=== PATIENT | male | born 1980 | race African-American/Black ===

== ENCOUNTER 2017-07-19 17:22 | Emergency (ER) | payer SELFPAY ==
[2017-07-19] MEDS ORDERED: KETOROLAC 60 MG/2 ML VIAL IM STA (17:45)
--- NOTE | 2017-07-19 17:49 | Emergency Department Record ---
History of Present Illness - General Chief Complaint: Back Pain/Injury Stated Complaint: BACK PAIN Time Seen by Provider: 07/19/17 17:24 Source: Patient Mode of Arrival: Ambulatory Limitations: No limitations - History of Present Illness Initial Comments: 36 yo male presents to ED for evaluation of lower back pain symptoms to the right lower lumbar region. Patient denies specific injury, but does reports that he awoke with symptoms this morning. Patient denies fevers, chills, urinary retention symptoms, or numbness/weakness to the lower extremities. Patient denies history of IVDA. Patient denies health problems at his baseline. MD Complaint: Back pain Onset/Timin -: Hour(s) Similar Symptoms Previously: Yes Radiation: Other Severity scale (1-10): 8 Consistency: Constant Improves With: None Worsens With: None Context: Unknown Associated Symptoms: Difficulty urinating, Difficulty walking, Headaches, Nausea /vomiting Treatments Prior to Arrival: Acetaminophen - Related Data Previous Rx's Medication Instructions Recorded Ibuprofen [Motrin] 800 mg PO Q6H PRN #30 tab 07/19/17 Sulfamethoxazole/Trimethoprim 1 each PO BID #13 tablet 07/19/17 [Bactrim Ds Tablet] Allergies Allergy/AdvReac Type Severity Reaction Status Date / Time No Known Drug Allergies Allergy Verified 07/19/17 17:40 Travel Screening - Travel/Exposure Within Last 30 Days Have you traveled within the last 30 days?: No - Travel/Exposure Within Last Year Have you traveled outside the [place] in the last year?: No - Additonal Travel Details Have you been exposed to anyone with a communicable illness?: No - Travel Symptoms Symptom Screening: None Review of Systems Constitutional: Denies: Chills, Fever, Malaise, Night sweats Eyes: Denies: Eye discharge, Eye pain ENT: Denies: Congestion, Ear pain, Epistaxis Respiratory: Denies: Cough, Dyspnea Cardiovascular: Denies: Chest pain, Dyspnea on exertion Endocrine: Denies: Fatigue, Heat or cold intolerance Gastrointestinal: Denies: Abdominal pain, Nausea, Vomiting Genitourinary: Denies: Incontinence, Retention Musculoskeletal: Reports: Back pain. Denies: Arthralgia, Gout, Joint swelling Skin: Denies: Bruising, Change in color Neurological: Denies: Abnormal gait, Confusion, Headache, Seizure Psychiatric: Denies: Anxiety Hematological/Lymphatic: Denies: Anemia, Blood Clots Past Medical History - SOCIAL HISTORY Smoking Status: Current every day smoker Alcohol Use: None Drug Use: Heavy Drug Use Detail:: Marijuana - RESPIRATORY Hx Respiratory Disorders: No - CARDIOVASCULAR Hx Cardio Disorders: No - NEURO Hx Neuro Disorders: No - GI Hx GI Disorders: No - Hx Genitourinary Disorders: No - ENDOCRINE Hx Endocrine Disorders: No - MUSCULOSKELETAL Hx Musculoskeletal Disorders: Yes - PSYCH Hx Psych Problems: No - HEMATOLOGY/ONCOLOGY Hx Hematology/Oncology Disorders: No Family Medical History Any Significant Family History?: No Physical Exam - General General Appearance: Alert, Oriented x3, Cooperative, Mild distress, Other ( Patient noted to be carrying his 1 yo child into the ED on arrival, ambulating without distress.) Limitations: No limitations - Head Head exam: Atraumatic, Normocephalic, Normal inspection Head exam detail: negative: Abrasion, Contusion, Chiu's sign, General tenderness, Hematoma, Laceration - Eye Eye exam: Normal appearance. negative: Conjunctival injection, Periorbital swelling, Periorbital tenderness, Scleral icterus - ENT Ear exam: negative: Auricular hematoma, Auricular trauma Nasal Exam: negative: Active bleeding, Discharge, Dried blood, Foreign body Mouth exam: negative: Drooling, Laceration, Muffled voice, Tongue elevation - Neck Neck exam: Normal inspection. negative: Meningismus, Tenderness - Respiratory Respiratory exam: Normal lung sounds bilaterally. negative: Rales, Respiratory distress, Rhonchi, Stridor - Cardiovascular Cardiovascular Exam: Regular rate, Normal rhythm, Normal heart sounds - GI/Abdominal GI/Abdominal exam: Soft. negative: Rebound, Rigid, Tenderness - Rectal Rectal exam: Deferred - exam: Deferred - Extremities Extremities exam: Normal inspection. negative: Calf tenderness, Pedal edema, Tenderness - Back Back exam: Reports: Paraspinal tenderness (Mild TTP over the right paravertebral lumbar region). Denies: CVA tenderness (R), CVA tenderness (L) - Neurological Neurological exam: Alert, Normal gait, Oriented X3 - Psychiatric Psychiatric exam: Normal affect, Normal mood - Skin Skin exam: Normal color. negative: Abrasion Type of lesion: negative: abrasion Course Vital Signs 07/19/17 17:26 Temperature 99.0 F Pulse Rate 86 Respiratory 16 Rate Blood Pressure 106/75 Pulse Ox 96 - Reevaluation(s) Reevaluation #1: 07/19/17 17:50 Patient has no clinical or historical risk factors for spinal cord compression syndrome, and radiographs do not appear indicated given the abscence of significant injury and age <50 years. Will treat for lower myofascial strain and reassess. Reevaluation #2: 07/19/17 18:21 Patient reassessed and reports that his back pain symptoms are greatly improved. UA reviewed: No RBCs 16-20 WBCs Bacteria 4+ Will treat with Bactrim for his symptoms and send GC/Chlamydia. Patient appears stable for discharge at this time. Disposition Disposition: Discharge Clinical Impression: UTI (urinary tract infection) Qualifiers: Urinary tract infection type: acute cystitis Hematuria presence: without hematuria Qualified Code(s): N30.00 - Acute cystitis without hematuria Low back pain Qualifiers: Chronicity: acute Back pain laterality: unspecified Sciatica presence: without sciatica Qualified Code(s): M54.5 - Low back pain Disposition: Home, Self-Care Condition: (2) Stable Instructions: Low Back Strain (ED) Additional Instructions: Return to ED if your symptoms worsen or if you have any concerns. Motrin 800 and Bactrim as directed. Follow-up with your family doctor in 1-3 days as directed. Prescriptions: Ibuprofen [Motrin] 800 mg PO Q6H PRN #30 tab PRN Reason: Pain - Moderate (5-7) Sulfamethoxazole/Trimethoprim [Bactrim Ds Tablet] 1 each PO BID #13 tablet Forms: Patient Portal Access Time of Disposition: 17:53 Quality - Quality Measures Quality Measures: N/A - Blood Pressure Screening Does Patient Have Any of the Following: No Blood Pressure Classification: Normal BP Reading Systolic Measurement: 113 Diastolic Measurement: 70 Screening for High Blood Pressure: < Normal BP, F/U Not Required > [G8783]
[2017-07-19 18:04] LABS: URINE APPEARANCE CLOUDY; URINE BILIRUBIN NEGATIVE (NEGATIVE); URINE BLOOD NEGATIVE (NEGATIVE); URINE COLOR YELLOW; URINE GLUCOSE (UA) NEGATIVE (NEGATIVE); URINE KETONE NEGATIVE (NEGATIVE); URINE LEUKOCYTE ESTERASE SMALL (NEGATIVE); URINE NITRITE POSITIVE (NEGATIVE); URINE PROTEIN NEGATIVE (NEGATIVE)
[2017-07-19 18:12] LABS: URINE BACTERIA 4+; URINE EPITHELIAL CELLS NONE SEEN (FEW); URINE RBC NONE SEEN (NONE SEEN); URINE WBC 16 - 20 (0-2/hpf)
[2017-07-19] MEDS ORDERED: TMP/SMZ 160MG/800MG TAB PO ONE (18:24)
== END 2017-07-19 18:37 | disposition home or self-care (01) ==
LOC: ER 17:22
DX: N30.00 Acute cystitis without hematuria (principal); M54.5 Low back pain; R11.2 Nausea with vomiting, unspecified; R51 Headache; F17.210 Nicotine dependence, cigarettes, uncomplicated
CPT/HCPCS: 81001; 96372; 99283; 99284; J1885

== ENCOUNTER 2017-08-10 21:50 | Emergency (ER) | payer SELFPAY ==
[2017-08-10] MEDS ORDERED: ACETAMINOPHEN 500 MG TABLET PO ONE (22:02)
[2017-08-10] MEDS ORDERED: KETOROLAC 30 MG/ML VIAL IVP ONE (22:02)
--- NOTE | 2017-08-10 22:09 | Emergency Department Record ---
History of Present Illness - General Chief Complaint: Back Pain/Injury Stated Complaint: BACK PAIN Time Seen by Provider: 08/10/17 21:52 Source: Patient Mode of Arrival: Wheelchair Limitations: No limitations - History of Present Illness Initial Comments: 37 yo male presents to ED for evaluation of bilateral low back pain symptoms that began earlier today. Patient was seen 3 weeks ago for similar symptoms, diagnosed with UTI and treated. Patient denies health problems at his baseline. Patient does reports taking an OTC medication which did not improve his symptoms significantly. MD Complaint: Back pain Onset/Timin -: Hour(s) Place: Home Severity: Severe Quality: Aching Consistency: Constant Improves With: None Worsens With: None Associated Symptoms: Denies other symptoms Treatments Prior to Arrival: Other medications - Related Data Previous Rx's Medication Instructions Recorded Ibuprofen [Motrin] 800 mg PO Q6H PRN #30 tab 07/19/17 Sulfamethoxazole/Trimethoprim 1 each PO BID #13 tablet 07/19/17 [Bactrim Ds Tablet] Allergies Allergy/AdvReac Type Severity Reaction Status Date / Time No Known Drug Allergies Allergy Verified 07/19/17 17:40 Travel Screening - Travel/Exposure Within Last 30 Days Have you traveled within the last 30 days?: No - Travel/Exposure Within Last Year Have you traveled outside the [place] in the last year?: No - Additonal Travel Details Have you been exposed to anyone with a communicable illness?: No - Travel Symptoms Symptom Screening: None Review of Systems Constitutional: Reports: Fever. Denies: Chills, Malaise, Night sweats Eyes: Denies: Eye discharge, Eye pain ENT: Denies: Congestion, Ear pain, Epistaxis Respiratory: Denies: Cough, Dyspnea Cardiovascular: Denies: Chest pain, Dyspnea on exertion Endocrine: Denies: Fatigue, Heat or cold intolerance Gastrointestinal: Denies: Abdominal pain, Nausea, Vomiting Genitourinary: Denies: Incontinence, Retention Musculoskeletal: Reports: Back pain. Denies: Arthralgia, Gout, Joint swelling Skin: Denies: Bruising, Change in color Neurological: Denies: Abnormal gait, Confusion, Headache, Seizure Psychiatric: Denies: Anxiety Hematological/Lymphatic: Denies: Anemia, Blood Clots Past Medical History - SOCIAL HISTORY Smoking Status: Current every day smoker Alcohol Use: None Drug Use: None - RESPIRATORY Hx Respiratory Disorders: No - CARDIOVASCULAR Hx Cardio Disorders: No - NEURO Hx Neuro Disorders: No - GI Hx GI Disorders: No - Hx Genitourinary Disorders: No - ENDOCRINE Hx Endocrine Disorders: No - MUSCULOSKELETAL Hx Musculoskeletal Disorders: Yes - PSYCH Hx Psych Problems: No - HEMATOLOGY/ONCOLOGY Hx Hematology/Oncology Disorders: No Family Medical History Any Significant Family History?: No Physical Exam - General General Appearance: Alert, Oriented x3, Cooperative, Moderate distress Limitations: No limitations - Head Head exam: Atraumatic, Normocephalic, Normal inspection Head exam detail: negative: Abrasion, Contusion, Chiu's sign, General tenderness, Hematoma, Laceration - Eye Eye exam: Normal appearance. negative: Conjunctival injection, Periorbital swelling, Periorbital tenderness, Scleral icterus - ENT Ear exam: negative: Auricular hematoma, Auricular trauma Nasal Exam: negative: Active bleeding, Discharge, Dried blood, Foreign body Mouth exam: negative: Drooling, Laceration, Muffled voice, Tongue elevation - Neck Neck exam: Normal inspection. negative: Meningismus, Tenderness - Respiratory Respiratory exam: Normal lung sounds bilaterally. negative: Rales, Respiratory distress, Rhonchi, Stridor - Cardiovascular Cardiovascular Exam: Regular rate, Normal rhythm, Normal heart sounds - GI/Abdominal GI/Abdominal exam: Soft. negative: Rebound, Rigid, Tenderness - Rectal Rectal exam: Deferred - exam: Deferred - Extremities Extremities exam: negative: Pedal edema, Tenderness - Back Back exam: Reports: CVA tenderness (R), CVA tenderness (L) - Neurological Neurological exam: Alert, Normal gait, Oriented X3 - Psychiatric Psychiatric exam: Normal affect, Normal mood - Skin Skin exam: Normal color. negative: Abrasion Type of lesion: negative: abrasion Course Vital Signs 08/10/17 22:01 Temperature 100.6 F H Pulse Rate [ 82 Pulse Ox Probe] Respiratory 18 Rate Blood Pressure 124/60 [Left Arm] Pulse Ox 95 - Reevaluation(s) Reevaluation #1: 08/10/17 22:36 Labs were reviewed, WBC 14.3, 82% neutrophils. Labs are otherwise grossly unremarkable for an acute process. Reevaluation #2: 08/10/17 23:04 UA sent to lab, patient reassessed and reports improvement in his symptoms. Antibiotics initiated at this time. Reevaluation #3: 08/10/17 23:19 UA reviewed: RBC 0-2 WBC 3-5 Epi 0-2 Few bacteria Patient reassessed, reports that his back pain symptoms continue to be 8/10. Repeat temper is 98.9. Patient's lower extremity strength 5/5 and symmetric, denies groin numbness or urinary retention symptoms. Patient denies any history of back surgery, IVDA. Patient denies previous cardiac surgery, no heart murmur on examination. Will initiate transfer for further evaluation. CT Abdomen/Pelvis: No acute process Reevaluation #4: 08/10/17 23:55 Case was discussed with Dr. Farooq, will accept transfer for further evaluation. Medical Decision Making - Lab Data Result diagrams: 08/10/17 22:06 08/10/17 22:06 Disposition Disposition: Transfer Clinical Impression: Fever Qualifiers: Fever type: unspecified Qualified Code(s): R50.9 - Fever, unspecified Back pain Qualifiers: Back pain location: low back pain Chronicity: acute Back pain laterality: bilateral Sciatica presence: unspecified whether sciatica present Qualified Code (s): M54.5 - Low back pain Disposition: Acute Care Hospital Transfer Transfer To: [facility] Reason For Transfer: Urological consultation, SDU Accepting Physician: Oseas Time Discussed w/Accepting Physician: 23:56 Condition: (2) Stable Forms: Patient Portal Access Time of Disposition: 23:56 Quality - Quality Measures Quality Measures: N/A - Blood Pressure Screening Does Patient Have Any of the Following: No Blood Pressure Classification: Normal BP Reading Systolic Measurement: 117 Diastolic Measurement: 66 Screening for High Blood Pressure: < Normal BP, F/U Not Required > [G8783]
[2017-08-10 22:14] LABS: HEMATOCRIT 43.2 % (42.0-52.0); HEMOGLOBIN 14.7 gm/dl (14.0-18.0); MEAN CELL VOLUME 91.5 fl (81-97); MEAN CORPUSCULAR HEMOGLOBIN 31.1 pg (27-33); MEAN PLATELET VOLUME 10.5 fl (7.4-10.4); PLATELET COUNT 248 K/uL (130-400); RED BLOOD COUNT 4.72 M/uL (4.40-5.70); RED CELL DISTRIBUTION WIDTH 13.9 % (11.5-14.5); WHITE BLOOD COUNT W/O DIFF 14.3 K/uL (4.2-12.2)
[2017-08-10] MEDS ORDERED: 0.9 % SODIUM CHLORIDE 1000ML 1,000 ML IV SCH (22:15)
[2017-08-10 22:27] LABS: BLOOD UREA NITROGEN 11 mg/dL (6-20); CREATININE 1.3 mg/dL (0.7-1.2); EST GLOMERULAR FILTRATION RATE > 60 mL/min
[2017-08-10 22:30] LABS: GLUCOSE,RANDOM 101 mg/dL (74-109)
[2017-08-10 22:32] LABS: ALT/SGPT 19 U/L (<41); AST/SGOT 23 U/L (10.0-50.0)
[2017-08-10 22:33] LABS: ALB/GLOB RATIO 1.4 (1.1-1.8); ALBUMIN 4.1 g/dL (4.0-5.0); ALKALINE PHOSPHATASE 46 U/L (40-129)
[2017-08-10] MEDS ORDERED: CEFTRIAXONE SODIUM 1 GM in 0.9 % SODIUM CHLORIDE 100ML 100 ML IVPB ONE (23:08)
[2017-08-10 23:09] LABS: URINE APPEARANCE CLEAR; URINE BILIRUBIN NEGATIVE (NEGATIVE); URINE BLOOD NEGATIVE (NEGATIVE); URINE COLOR YELLOW; URINE GLUCOSE (UA) NEGATIVE (NEGATIVE); URINE KETONE NEGATIVE (NEGATIVE); URINE LEUKOCYTE ESTERASE SMALL (NEGATIVE); URINE NITRITE NEGATIVE (NEGATIVE); URINE PROTEIN NEGATIVE (NEGATIVE)
[2017-08-10 23:16] LABS: URINE BACTERIA FEW; URINE EPITHELIAL CELLS 0 - 2 (FEW); URINE RBC 0 - 2 (NONE SEEN)
[2017-08-10] MEDS ORDERED: MORPHINE SULFATE 4MG/ML PREFILLED SYRINGE IVP ONE (23:56)
--- NOTE | 2017-08-12 13:36 | CT SCAN REPORT ---
EXAM: CT OF THE ABDOMEN AND PELVIS HISTORY: LOW BACK PAIN. TECHNIQUE: CT of the abdomen and pelvis was performed without oral or IV contrast. This limits evaluation of bowel and solid visceral organs. Comparison: None. FINDINGS: Limited evaluation of the lung bases is unremarkable. The osseous structures are grossly intact. Limited evaluation of the liver, spleen, adrenal glands, pancreas, and kidneys is unremarkable. The gallbladder is present. Negative for urinary tract calculus or hydronephrosis. A somewhat prominent appearance to the adrenal glands bilaterally may reflect hyperplasia. There is a large amount of stool in the colon. No gross evidence for bowel obstruction. No free air or free fluid. The appendix is not well seen. No pericecal inflammation. IMPRESSION: 1. NEGATIVE FOR AN ACUTE INTRAABDOMINAL/PELVIC PROCESS. 2. SLIGHTLY PROMINENT APPEARANCE TO THE ADRENAL GLANDS BILATERALLY MAY REFLECT HYPERPLASIA. ABUNDANT STOOL IN THE COLON. JOB NUMBER: [id number] MTDD
== END 2017-08-11 01:05 | disposition short-term general hospital (02) ==
LOC: ER 21:50
DX: F50.9 Eating disorder, unspecified (principal); M54.5 Low back pain; F17.210 Nicotine dependence, cigarettes, uncomplicated
CPT/HCPCS: 99285 ×2; 96365; 96375; 96361; 83605; 80053; 81001; 85027; 74176; J1885; J2274; J7030

== ENCOUNTER 2018-11-13 12:38 | Emergency (ER) | payer MEDICAID ==
--- NOTE | 2018-11-13 14:07 | Emergency Department Record ---
History of Present Illness - General Chief Complaint: Back Pain/Injury Stated Complaint: BACK AND TESTICLE PAIN Time Seen by Provider: 11/13/18 13:42 Source: Patient Mode of Arrival: Ambulatory Limitations: No limitations - History of Present Illness Initial Comments: pt is c/o scrotal pain and swelling on the right and having blood come out of his penis when he masturbated. he also c/o back pain and an his finger turning yellow Complaint: Back pain, Other (testicular pain and swelling) Onset/Timin -: Days(s) Similar Symptoms Previously: Yes Place: Home Radiation: None Severity: Moderate Severity scale (1-10): 8 Consistency: Constant Improves With: Supine Worsens With: Movement, Walking Context: Unknown Associated Symptoms: Other - Related Data Allergies Allergy/AdvReac Type Severity Reaction Status Date / Time No Known Drug Allergies Allergy Unverified 05/19/18 09:40 Travel Screening - Travel/Exposure Within Last 30 Days Have you traveled within the last 30 days?: No Review of Systems Reviewed: No additional complaints except as noted below Constitutional: Reports: As per HPI. Denies: Chills, Fever, Malaise, Night sweats, Weakness, Weight change Eyes: Reports: As per HPI. Denies: Eye discharge, Eye pain, Photophobia, Vision change ENT: Reports: As per HPI. Denies: Congestion, Dental pain, Ear pain, Epistaxis, Hearing loss, Throat pain Respiratory: Reports: As per HPI. Denies: Cough, Dyspnea, Hemoptysis, Stridor, Wheezes Cardiovascular: Reports: As per HPI. Denies: Arrhythmia, Chest pain, Dyspnea on exertion, Edema, Murmurs, Orthopnea, Palpitations, Paroxysmal nocturnal dyspnea, Rheumatic Fever, Syncope Endocrine: Reports: As per HPI. Denies: Fatigue, Heat or cold intolerance, Po lydipsia, Polyuria Gastrointestinal: Reports: As per HPI. Denies: Abdominal pain, Constipation, Diarrhea, Hematemesis, Hematochezia, Melena, Nausea, Vomiting Genitourinary: Reports: As per HPI, Testicular pain. Denies: Dysuria, Frequency, Hematuria, Incontinence, Retention, Testicular mass, Urgency Musculoskeletal: Reports: As per HPI, Back pain. Denies: Arthralgia, Gout, Joint swelling, Myalgia, Neck pain Skin: Reports: As per HPI. Denies: Bruising, Change in color, Change in hair/nails, Lesions, Pruritus, Rash Neurological: Reports: As per HPI. Denies: Abnormal gait, Confusion, Headache, Numbness, Paresthesias, Seizure, Tingling, Tremors, Vertigo, Weakness Psychiatric: Reports: As per HPI. Denies: Anxiety, Auditory hallucinations, Depression, Homicidal thoughts, Suicidal thoughts, Visual hallucinations Hematological/Lymphatic: Reports: As per HPI. Denies: Anemia, Blood Clots, Easy bleeding, Easy bruising, Swollen glands Past Medical History - SOCIAL HISTORY Smoking Status: Current every day smoker - RESPIRATORY Hx Respiratory Disorders: No - CARDIOVASCULAR Hx Cardio Disorders: No - NEURO Hx Neuro Disorders: No - GI Hx GI Disorders: No - Hx Genitourinary Disorders: No - ENDOCRINE Hx Endocrine Disorders: No - MUSCULOSKELETAL Hx Musculoskeletal Disorders: Yes - PSYCH Hx Psych Problems: No - HEMATOLOGY/ONCOLOGY Hx Hematology/Oncology Disorders: No Family Medical History Any Significant Family History?: No Physical Exam - General General Appearance: Alert, Oriented x3, Cooperative, Mild distress - Head Head exam: Normal inspection - Eye Eye exam: Normal appearance, PERRL, EOMI Pupils: Normal accommodation - ENT ENT exam: Normal exam, Mucous membranes moist, Normal external ear exam, Normal orophraynx Ear exam: Normal external inspection. negative: External canal tenderness Nasal Exam: Normal inspection. negative: Discharge, Sinus tenderness Mouth exam: Normal external inspection, Tongue normal Teeth exam: Normal inspection. negative: Dental caries Throat exam: Normal inspection. negative: Tonsillar erythema, Tonsillar exudate - Neck Neck exam: Normal inspection, Full ROM. negative: Tenderness - Respiratory Respiratory exam: Normal lung sounds bilaterally. negative: Respiratory distress - Cardiovascular Cardiovascular Exam: Regular rate, Normal rhythm, Normal heart sounds - GI/Abdominal GI/Abdominal exam: Soft, Normal bowel sounds. negative: Tenderness - Rectal Rectal exam: Deferred - exam: Scrotal swelling (on r), Testicular tenderness - Extremities Extremities exam: Normal inspection, Full ROM, Normal capillary refill, Other (perinichial abscess). negative: Tenderness - Back Back exam: Reports: Normal inspection, Full ROM. Denies: Muscle spasm, Rash no cali, Tenderness - Neurological Neurological exam: Alert, CN II-XII intact, Normal gait, Oriented X3 - Psychiatric Psychiatric exam: Normal affect, Normal mood - Skin Skin exam: Dry, Intact, Normal color, Warm Course Vital Signs 09/02/19 13:15 Temperature 99.2 F Pulse Rate 83 Respiratory 20 Rate Blood Pressure 113/91 Pulse Ox 98 - Reevaluation(s) Reevaluation #1: 11/13/18 14:13 d/w dr burns 11/13/18 14:14 perinichial abscess opened w blade. purulence released Procedures - Incision and Drainage Site: perinichial Blade Size: 11 Disposition Disposition: Transfer Clinical Impression: Testicular swelling, right Abscess of finger Qualifiers: Laterality: right Qualified Code(s): L02.511 - Cutaneous abscess of right hand Transfer To: [facility] Reason For Transfer: needs doppler of testicle Accepting Physician: dr burns Time Discussed w/Accepting Physician: 14:14 Quality - Quality Measures Quality Measures: N/A - Blood Pressure Screening Does Patient Have Any of the Following: No Blood Pressure Classification: Hypertensive Reading Systolic Measurement: 113 Diastolic Measurement: 91 Screening for High Blood Pressure: < Pre-Hypertensive BP, F/U Documented > [G8950] Pre-Hypertensive Follow-up Interventions: Follow-up with rescreen every year.
== END 2018-11-13 14:20 | disposition short-term general hospital (02) ==
LOC: ER 12:38
DX: N50.89 Other specified disorders of the male genital organs (principal); N50.82 Scrotal pain; L02.512 Cutaneous abscess of left hand; M54.9 Dorsalgia, unspecified; F17.210 Nicotine dependence, cigarettes, uncomplicated
CPT/HCPCS: 26010; 99285